=== PATIENT | male | born 1965 | race Caucasian/White ===

== ENCOUNTER 2017-11-19 16:23 | Emergency (ER) | payer BC, OTHER ==
--- NOTE | 2017-11-19 17:05 | EDM.PDOC ---
ED HPI GENERAL MEDICAL PROBLEM - General Chief Complaint: Back Pain or Injury Stated Complaint: BODY ACHES/FEVER/RASH Time Seen by Provider: 11/19/17 16:47 Source of Information: Reports: Patient, Significant Other History Limitations: Reports: No Limitations - History of Present Illness INITIAL COMMENTS - FREE TEXT/NARRATIVE: 52-year-old male presents for evaluation and treatment of fevers, rash and bodyaches. patient reports he has been feeling ill for the last 3-4 days. Reports symptoms of headaches, body aches, fevers, fatigue and chills. He has felt feverish but has not checked his temperature any documented fever. States yesterday he had some lower back pain. Took some Motrin yesterday which resolved his back pain. He is also complaining of a headache but does not currently have a headache now. He denies any cough, throat pain, ear pain, abdominal pain, nausea, vomiting, dysuria or hematuria. Patient also reports he has developed a rash today. It currently involves his trunk, bilateral arms and bilateral legs. Unsure exactly where the rash started. Has not taken anything such as Benadryl for the rash. he denies any previous back pain or problems. No recent surgeries. Immunizations are up-to-date. No recent travel. His is concerned that he may West Nile. Reports that he is frequently outdoors at times and mosquitoes are at their highest. Treatments [employer]ER: Reports: Other (see below) Other Treatments [employer] BU[employer]ER: none - Related Data Allergies Allergy/AdvReac Type Severity Reaction Status Date / Time No Known Allergies Allergy Verified 11/19/17 16:33 Home Meds: Home Meds . [No Known Home Meds] 11/19/17 [History] Past Medical History - Past Surgical History Male Surgical History: Reports: Vasectomy Social & Family History - Tobacco Use Smoking Status *Q: Current Every Day Smoker Years of Tobacco use: 20 Packs/Tins Daily: 0.5 - Caffeine Use Caffeine Use: Reports: Coffee - Recreational Drug Use Recreational Drug Use: No ED ROS GENERAL - Review of Systems Review Of Systems: See Below Constitutional: Reports: Fever, Chills, Malaise, Fatigue, Other (bodyaches) HEENT: Denies: Ear Pain, Throat Pain Respiratory: Denies: Cough GI/Abdominal: Denies: Abdominal Pain, Diarrhea, Nausea, Vomiting : Denies: Dysuria Musculoskeletal: Reports: Back Pain (low back pain yesterday, non today). Denies: Neck Pain Skin: Reports: Rash (trunk, bilateral arms and legs) Neurological: Reports: Headache ED EXAM, GENERAL - Physical Exam Exam: See Below Exam Limited By: No Limitations General Appearance: Alert, WD/WN, No Apparent Distress Eye Exam: Bilateral Eye: Normal Inspection Ears: Normal External Exam, Normal Canal, Hearing Grossly Normal, Normal TMs Ear Exam: Bilateral Ear: TM normal Nose: Normal Inspection Throat/Mouth: Normal Inspection, Normal Lips, Normal Oropharynx, Normal Voice, No Airway Compromise, Other (no tonsilar swelling, erythema or exudates) Neck: Normal Inspection Respiratory/Chest: No Respiratory Distress, Lungs Clear, Normal Breath Sounds Cardiovascular: Normal Peripheral Pulses, Regular Rate, Rhythm, No Murmur GI/Abdominal: Normal Bowel Sounds, Soft, Non-Tender Back Exam: No: CVA Tenderness (L), CVA Tenderness (R) Neurological: Alert, Oriented, Normal Cognition Psychiatric: Normal Affect, Normal Mood Skin Exam: Warm, Dry, Normal Color, Other (erythematous, macular papular rash to the trunk, bilteral arms and legs; blanches under pressure, no blisters noted , no ecchymosis noted; 3 lestions to the right ventral foot, no involvments of the hands) Course - Vital Signs Last Recorded V/S: Last Vital Signs Temp 97.8 F 11/19/17 16:30 Pulse 68 11/19/17 16:30 Resp 20 11/19/17 16:30 BP 112/81 11/19/17 16:30 Pulse Ox 98 11/19/17 16:30 - Orders/Labs/Meds Orders: Active Orders 24 hr Category Date Time Status CULTURE STREP A CONFIRMATION [RM] Stat Lab 11/19/17 17:06 Results STREP SCRN A RAPID W CULT CONF [RM] Stat Lab 11/19/17 17:06 Ordered UA W/MICROSCOPIC [URIN] Stat Lab 11/19/17 17:25 Ordered [facility] [REF] Stat Lab 11/19/17 16:56 Ordered Labs: Laboratory Tests 11/19/17 11/19/17 11/19/17 Range/Units 17:20 17:20 17:25 WBC 3.42 L (4.23-9.07) K/mm3 RBC 5.16 (4.63-6.08) M/mm3 Hgb 15.9 (13.7-17.5) gm/L Hct 43.7 (40.1-51.0) % MCV 84.7 (79.0-92.2) fl MCH 30.8 (25.7-32.2) pg MCHC 36.4 H (32.2-35.5) g/dl RDW Std Deviation 38.1 (35.1-43.9) fL Plt Count 185 (163-337) K/mm3 MPV 9.2 L (9.4-12.3) fl Neutrophils % (Manual) 62 H (40-60) % Band Neutrophils % 0 (0-10) % Lymphocytes % (Manual) 33 (20-40) % Atypical Lymphs % 0 % Monocytes % (Manual) 3 (2-10) % Eosinophils % (Manual) 2 (0.8-7.0) % Basophils % (Manual) 0 L (0.2-1.2) Platelet Estimate Adequate RBC Morph Comment Normal Sodium 142 (136-145) mEq/L Potassium 3.9 (3.5-5.1) mEq/L Chloride 106 (98-107) mEq/L Carbon Dioxide 28 (21-32) mEq/L Anion Gap 11.9 (5-15) BUN 17 (7-18) mg/dL Creatinine 1.0 (0.7-1.3) mg/dL Est Cr Clr Drug Dosing 90.24 mL/min Estimated GFR (MDRD) > 60 (>60) mL/min BUN/Creatinine Ratio 17.0 (14-18) Glucose 97 (74-106) mg/dL Calcium 8.6 (8.5-10.1) mg/dL Total Bilirubin 0.4 (0.2-1.0) mg/dL AST 23 (15-37) U/L ALT 36 (16-63) U/L Alkaline Phosphatase 89 (46-116) U/L C-Reactive Protein < 0.2 (<1.0) mg/dL Total Protein 7.1 (6.4-8.2) g/dl Albumin 4.0 (3.4-5.0) g/dl Globulin 3.1 gm/dL Albumin/Globulin Ratio 1.3 (1-2) Urine Color Yellow (Yellow) Urine Appearance Clear (Clear) Urine pH 5.5 (5.0-8.0) Ur Specific [place] > or = 1.030 (1.005-1.030) Urine Protein Negative (Negative) Urine Glucose (UA) Negative (Negative) Urine Ketones Negative (Negative) Urine Occult Blood Negative (Negative) Urine Nitrite Negative (Negative) Urine Bilirubin Negative (Negative) Urine Urobilinogen 0.2 (0.2-1.0) Ur Leukocyte Esterase Negative (Negative) Urine RBC Not seen (0-5) /hpf Urine WBC 0-5 (0-5) /hpf Ur Epithelial Cells 0-5 (0-5) /hpf Urine Bacteria Few (FEW) /hpf Urine Mucus Few (FEW) /hpf - Re-Assessments/Exams Free Text/Narrative Re-Assessment/Exam: 11/19/17 18:31 Patient's rapid strep returned negative. Reviewed the labs with the patient. I feel this is likely a viral exanthem. Recommending symptomatic care. Follow-up in the clinic if not much better.. Discharge instructions as documented. Departure - Departure Time of Disposition: 18:33 Disposition: Home, Self-Care 01 Condition: Good Clinical Impression: Viral exanthem - Discharge Information *PRESCRIPTION DRUG MONITORING PROGRAM REVIEWED*: No *COPY OF PRESCRIPTION DRUG MONITORING REPORT IN PATIENT GRETCHEN: No Instructions: Rash Referrals: PCP,None [Primary Care Provider] - Susana Mccrary PA-C [[facility] [employer] [facility] [employer]] - Forms: ED Department Discharge Additional Instructions: Recommend symptomatic care. Tylenol ad Motrin as needed for headaches and bodyaches. Benadryl as needed for the rash. Make sure you're drinking plenty of fluids. Expect this another week. If your symptoms persist beyond 10 days please follow- up with family medicine. At the [facility] recommend Janessa Tan or Dr. Massey. Please call [phone] to schedule with one of these providers. Please return to the ER if your symptoms change or worsen. - My Orders Last 24 Hours: My Active Orders 11/19/17 16:56 [facility] [REF] Stat 11/19/17 17:06 CULTURE STREP A CONFIRMATION [RM] Stat STREP SCRN A RAPID W CULT CONF [RM] Stat 11/19/17 17:25 UA W/MICROSCOPIC [URIN] Stat - Assessment/Plan Last 24 Hours: My Active Orders 11/19/17 16:56 [facility] [REF] Stat 11/19/17 17:06 CULTURE STREP A CONFIRMATION [RM] Stat STREP SCRN A RAPID W CULT CONF [RM] Stat 11/19/17 17:25 UA W/MICROSCOPIC [URIN] Stat
== END 2017-11-19 18:44 | disposition home or self-care (01) ==
LOC: JD.ED 16:23
DX: B09 Unspecified viral infection characterized by skin and mucous membrane lesions (principal); F17.210 Nicotine dependence, cigarettes, uncomplicated
CPT/HCPCS: 80053; 81001; 85007; 85027; 86140; 87081; 87430; 99283